=== PATIENT | female | born 1965 | race Caucasian/White ===

== ENCOUNTER → 2017-06-02 | Outpatient (CLI) | payer OTHER ==
--- NOTE | 2017-06-02 15:15 | WOMENS IMAGING REPORT ---
EXAM DESCRIPTION: BILAT SCREENING MAMMO W/CAD COMPLETED DATE/TIME: 06/02/2017 9:47 am REASON FOR STUDY: ROUTINE SCREENING; Z12.31 Z12.31 ENCNTR SCREEN MAMMOGRAM FOR MALIGNANT NEOPLASM O F GALDINO COMPARISON: None. TECHNIQUE: Standard craniocaudal and mediolateral oblique views of each breast recorded using digita l acquisition. LIMITATIONS: None. FINDINGS: No masses, calcifications or architectural distortion. No areas of suspicion. Read with the assistance of CAD. .[facility] - R2 Cenova Version 1.3 .[facility] - R2 Cenova Version 1.3 .[facility] - R2 Cenova Version 2.4 .[facility] [place] R2 Cenova Version 2.4 .[facility] - R2 Jewel [employer] Cornerer Version 9.2 IMPRESSION: NORMAL MAMMOGRAM. BIRADS 1. BREAST DENSITY: a. The breasts are almost entirely fatty. BIRAD: 1 NEGATIVE RECOMMENDATION: ROUTINE SCREENING COMMENT: The patient has been notified of the results by letter per SA requirements. Additional no tification policies are in place for contacting patient with suspicious or incomplete findings. Quality ID #[id number]: The [employer] recommends an annual screening mammogram for women aged 40 years or over. This facility utilizes a reminder system to ensure that all patients receive reminder letters, and/or direct phone calls for appointments. This includes reminders for routine scr eening mammograms, diagnostic mammograms, or other Breast Imaging Interventions when appropriate. Th is patient will be placed in the appropriate reminder system. The [employer] ([employer]) has developed recommendations for screening MRI of the breast s in certain patient populations, to be used in conjunction with mammography. Breast MRI surveillanc e may be appropriate for women with more than 20% lifetime risk of developing breast cancer as deter mined by genetic testing, significant family history of the disease, or history of mantle radiation f or Hodgkins Disease. ACR Practice Guidelines 2008. TECHNICAL DOCUMENTATION: FINDING NUMBER: (1) ASSESSMENT: (1) JOB ID: [id number] [employer]- All Rights Reserved
== END ==
LOC: RAD 09:26
DX: Z12.31 Encounter for screening mammogram for malignant neoplasm of breast (principal)
CPT/HCPCS: 77067

== ENCOUNTER → 2017-06-02 | Outpatient (CLI) | payer OTHER ==
[2017-06-02 11:33] LABS: ABSOLUTE EOSINOPHILS # (AUTO) 0.1 10^3/uL (0.0-0.6); ABSOLUTE LYMPHOCYTES (AUTO) 1.5 10^3/uL (0.5-4.7); ABSOLUTE MONOCYTES (AUTO) 0.4 10^3/uL (0.1-1.4); ABSOLUTE NEUT (AUTO) 3.6 10^3/uL (1.7-8.2); BASOPHILS % (AUTO) 0.4 % (0-2); EOSINOPHILS % (AUTO) 1.6 % (0-6); HEMATOCRIT 35.3 % (36.0-47.0); HEMOGLOBIN 11.8 g/dL (12.0-15.5); LYMPHOCYTES % (AUTO) 26.5 % (13-45); MEAN CORPUSCULAR HEMOGLOBIN 29.5 pg (27.0-33.4); MEAN CORPUSCULAR HGB CONC 33.5 g/dL (32.0-36.0); MEAN CORPUSCULAR VOLUME 88 fl (80-97); MONOCYTES % (AUTO) 7.1 % (3-13); PLATELET COUNT 271 10^3/uL (150-450); RED BLOOD COUNT 4.01 10^6/uL (3.72-5.28); RED CELL DISTRIBUTION WIDTH 12.6 % (11.5-14.0); SEGMENTED NEUTROPHILS % (AUTO) 64.4 % (42-78); TOTAL CELLS COUNTED % (AUTO) 100 %; WHITE BLOOD COUNT 5.7 10^3/uL (4.0-10.5)
[2017-06-02 11:51] LABS: ALANINE AMINOTRANSFERASE 39 U/L (9-52); ALBUMIN 4.4 g/dL (3.5-5.0); ALKALINE PHOSPHATASE 52 U/L (38-126); ANION GAP 11 (5-19); ASPARTATE AMINO TRANSFERASE 35 U/L (14-36); BILIRUBIN,DIRECT 0.2 mg/dL (0.0-0.4); BILIRUBIN,TOTAL 0.4 mg/dL (0.2-1.3); BLOOD UREA NITROGEN 13 mg/dL (7-20); CALCIUM 9.5 mg/dL (8.4-10.2); CARBON DIOXIDE 26 mmol/L (22-30); CHLORIDE 107 mmol/L (98-107); GLUCOSE 110 mg/dL (75-110); POTASSIUM 3.9 mmol/L (3.6-5.0); TOTAL PROTEIN 6.9 g/dL (6.3-8.2)
== END ==
LOC: CCC 10:15
DX: E03.9 Hypothyroidism, unspecified (principal)
CPT/HCPCS: 36415; 80053; 83036; 84443; 85025

== ENCOUNTER → 2017-06-07 | Outpatient (CLI) | payer OTHER ==
[2017-06-07 10:06] LABS: CHOLESTEROL 196.56 mg/dL (0-200); TRIGLYCERIDES 107 mg/dL (<150)
[2017-06-07 10:17] LABS: DIRECT LDL 121 mg/dL (<100)
== END ==
LOC: CCC 08:18
DX: E03.9 Hypothyroidism, unspecified (principal); Z13.220 Encounter for screening for lipoid disorders
CPT/HCPCS: 36415; 80061

== ENCOUNTER → 2017-08-30 | Outpatient (CLI) | payer OTHER | LOC: CCC 13:07 | DX: E03.9 Hypothyroidism, unspecified (principal) | CPT/HCPCS: 36415; 84443 ==

== ENCOUNTER → 2017-11-29 | Outpatient (CLI) | payer OTHER ==
[2017-11-29 15:48] LABS: FREE T3 3.67 pg/mL (2.77-5.27); FREE T4 (FREE THYROXINE) 1.62 ng/dL (0.78-2.19)
[2017-11-29 16:02] LABS: THYROID STIMULATING HORMONE 0.12 uIU/mL (0.47-4.68)
== END ==
LOC: CCC 14:35
DX: E03.9 Hypothyroidism, unspecified (principal)
CPT/HCPCS: 36415; 84439; 84443; 84481

== ENCOUNTER → 2018-02-11 | Outpatient (CLI) | payer OTHER ==
[2018-02-11 16:10] LABS: FREE T3 2.96 pg/mL (2.77-5.27); FREE T4 (FREE THYROXINE) 1.11 ng/dL (0.78-2.19)
[2018-02-11 16:24] LABS: THYROID STIMULATING HORMONE 1.48 uIU/mL (0.47-4.68)
== END ==
LOC: CCC 14:12
DX: E78.5 Hyperlipidemia, unspecified (principal); E03.9 Hypothyroidism, unspecified
CPT/HCPCS: 36415; 84439; 84443; 84481

== ENCOUNTER → 2018-02-21 | Outpatient (CLI) | payer OTHER ==
[2018-02-21 10:25] LABS: TRIGLYCERIDES 95 mg/dL (<150)
[2018-02-21 10:36] LABS: DIRECT LDL 150 mg/dL (<100)
[2018-02-21 10:42] LABS: FREE T3 3.22 pg/mL (2.77-5.27); FREE T4 (FREE THYROXINE) 1.21 ng/dL (0.78-2.19)
[2018-02-21 10:54] LABS: THYROID STIMULATING HORMONE 1.6 uIU/mL (0.47-4.68)
== END ==
LOC: OD 09:28
DX: E78.5 Hyperlipidemia, unspecified (principal); E03.9 Hypothyroidism, unspecified
CPT/HCPCS: 36415; 80061; 84439; 84443; 84481

== ENCOUNTER 2018-02-28 08:39 | Emergency (ER) | payer SELFPAY ==
[2018-02-28 08:59] VITALS: BP 134/83
[2018-02-28] MEDS ORDERED: METHYLPREDNISOLONE INJ 125 MG/2 ML SDV IM ONE (09:14)
--- NOTE | 2018-02-28 09:19 | ER Document Report ---
HPI - HPI Pain Level: Denies Notes: Patient is a 52-year-old female with no significant past medical history who presents to the ED complaining of exposure to poison sumac and a rash to her right arm times 2 days. Patient has itching associated. Patient states that she has had this flareup before and usually requires steroids. She is eating and drinking without any difficulties. She is urinating normally and having normal bowel movements. Patient states that the rash on her arm is starting to weep. Denies any headache, fever, swelling of the lip/tongue/throat, drooling, hoarseness, neck pain, changes in vision/speech/mentation/hearing, URI, sore throat, chest pain, palpitations, syncope, cough, shortness of breath, wheeze, dyspnea, abdominal pain, nausea/vomiting/diarrhea, urinary retention, dysuria, hematuria, loss of control of bowel or bladder, numbness/tingling, muscle paralysis/weakness. - ROS Systems Reviewed and Negative: Yes All other systems reviewed and negative - CONSTITUTIONAL Constitutional: DENIES: Fever, Chills - EENT EENT: DENIES: Sore Throat, Ear Pain, Eye problems - NEURO Neurology: DENIES: Headache, Weakness, Vision blurred, Dizzinesss / Vertigo - CARDIOVASCULAR Cardiovascular: DENIES: Chest pain - RESPIRATORY Respiratory: DENIES: Trouble Breathing, Coughing - GASTROINTESTINAL Gastrointestinal: DENIES: Abdominal Pain, Black / Bloody Stools - URINARY Urinary: DENIES: Dysuria, Urgency, Frequency - REPRODUCTIVE Reproductive: DENIES: : - MUSCULOSKELETAL Musculoskeletal: DENIES: Extremity pain Past Medical History - Social History Smoking Status: Never Smoker Chew tobacco use (# tins/day): No Frequency of alcohol use: None Drug Abuse: None Family History: DM Patient has suicidal ideation: No Patient has homicidal ideation: No Endocrine Medical History: Reports: Hx Hypothyroidism Renal/ Medical History: Denies: Hx Peritoneal Dialysis Musculoskeletal Medical History: Reports Hx Arthritis - back Past Surgical History: Reports: Hx Section - c section x 1, Hx Gynecologic Surgery - tubal ligation, Hx Orthopedic Surgery - L carpal tunnel, L elbow-radial and ulnar nerve release, L knee surgery, Hx Thyroid Surgery, Hx Tubal Ligation - Immunizations Hx Diphtheria, Pertussis, Tetanus Vaccination: No Vertical Provider Document - CONSTITUTIONAL Agree With Documented VS: Yes Notes: PHYSICAL EXAMINATION: GENERAL: Well-appearing, well-nourished and in no acute distress. HEAD: Atraumatic, normocephalic. EYES: Pupils equal round and reactive to light, extraocular movements intact, sclera anicteric, conjunctiva are normal. ENT: Nares patent and without discharge. oropharynx clear without exudates. No tonsilar hypertrophy or erythema. Moist mucous membranes. No angioedema or airway compromise. NECK: Normal range of motion, supple without lymphadenopathy LUNGS: Breath sounds clear to auscultation bilaterally and equal. No wheezes rales or rhonchi. HEART: Regular rate and rhythm without murmurs, rubs, gallops. ABDOMEN: Soft, nontender, nondistended abdomen. No guarding, no rebound. No masses appreciated. Normal bowel sounds present. No CVA tenderness bilaterally. Musculoskeletal: FROM to passive/active. Strength 5+/5. Extremities: No cyanosis, clubbing, or edema b/l. Peripheral pulses 2+. Capillary refill less than 3 seconds. NEUROLOGICAL: Cranial nerves grossly intact. Normal speech, normal gait. Normal sensory, motor exams PSYCH: Normal mood, normal affect. SKIN: Weeping mildly erythemic lesions noted to the right posterior arm without induration, fluctuance, abscess, tenderness. - INFECTION CONTROL TRAVEL OUTSIDE OF THE [place] IN LAST 30 DAYS: No Course - Re-evaluation Re-evalutation: 02/28/18 09:17 Patient is an afebrile, well-hydrated 52-year-old female who presents to the ED for a contact dermatitis, suspect possible sumac. Vitals are acceptable without any significant tachycardia, tachypnea, hypoxia, hypotension. PE is otherwise unremarkable. There is no evidence of superimposed bacterial infection at this time. Patient is nontoxic-appearing and is tolerating p.o. without difficulties. Low suspicion for any cellulitis, sepsis, meningitis, severe dehydration, respiratory compromise, angioedema, or other systemic emergent condition at this time. Patient is aware that condition can change from initial presentation and she needs to monitor symptoms closely and seek medical attention with any acute changes. Patient declined steroid injection. I will send her home with a prescription for a steroid taper. Conservative measures otherwise for symptoms. Recheck with your PCM in 2-3 days. Return to the ED with any worsening/concerning symptoms otherwise as reviewed in discharge. Patient is in agreement. - Vital Signs Vital signs: Temp Pulse Resp BP Pulse Ox 98.3 F 76 16 134/83 H 100 02/28/18 08:58 02/28/18 08:58 02/28/18 08:58 02/28/18 08:58 02/28/18 08:58 Discharge - Discharge Clinical Impression: Contact dermatitis Qualifiers: Contact dermatitis type: irritant Contact dermatitis trigger: non-food plants Qualified Code(s): L24.7 - Irritant contact dermatitis due to plants, except food Condition: Stable Disposition: HOME, SELF-CARE Additional Instructions: Keep the skin clean Wash with soap and water Tylenol/ibuprofen if needed Triple antibiotic ointment daily for any break in the skin Take medication as directed Monitor for any worsening symptoms Recheck with your PCM in 3-5 days Return to the ED with any worsening symptoms and/or development of fever, headache, chest pain, palpitations, syncope, shortness of breath, trouble breathing, abdominal pain, n/v/d, abscess, purulent discharge, red streaks, worsening swelling, or other worsening symptoms that are concerning to you. Prescriptions: Prednisone 20 mg PO ASDIR #18 tablet Forms: Elevated Blood Pressure Referrals: [facility] [Primary Care Provider] - Follow up as needed
== END 2018-02-28 09:51 | disposition home or self-care (01) ==
LOC: ER 08:39
DX: L24.7 Irritant contact dermatitis due to plants, except food (principal); E03.9 Hypothyroidism, unspecified; Z98.51 Tubal ligation status
CPT/HCPCS: 99282

== ENCOUNTER → 2018-07-05 | Outpatient (CLI) | payer OTHER ==
[2018-07-05 10:45] LABS: CHOLESTEROL 211.24 mg/dL (0-200); TRIGLYCERIDES 127 mg/dL (<150)
[2018-07-05 10:56] LABS: DIRECT LDL 135 mg/dL (<100)
== END ==
LOC: CCC 09:33
DX: E78.5 Hyperlipidemia, unspecified (principal)
CPT/HCPCS: 36415; 80061

== ENCOUNTER → 2018-08-16 | Outpatient (CLI) | payer OTHER ==
[2018-08-16 15:17] LABS: FREE T4 (FREE THYROXINE) 1.02 ng/dL (0.78-2.19)
[2018-08-16 15:31] LABS: THYROID STIMULATING HORMONE 7.68 uIU/mL (0.47-4.68)
== END ==
LOC: CCC 12:56
DX: E03.9 Hypothyroidism, unspecified (principal)
CPT/HCPCS: 36415; 84439; 84443

== ENCOUNTER → 2019-09-15 | Outpatient (CLI) | payer OTHER | LOC: OD 14:35 | PROVIDERS: ATTEND Internal Medicine | DX: E03.9 Hypothyroidism, unspecified (principal) | CPT/HCPCS: 36415; 84443 ==

== ENCOUNTER → 2020-03-12 | Outpatient (CLI) | payer OTHER | LOC: CCC 09:24 | PROVIDERS: ATTEND Internal Medicine | DX: E03.9 Hypothyroidism, unspecified (principal) | CPT/HCPCS: 36415; 84443 ==